=== PATIENT | male | born 1965 | race Caucasian/White ===

== ENCOUNTER 2019-10-06 08:36 | Emergency (ER) | payer SELFPAY ==
[2019-10-06 08:37] VITALS: BP 147/97; PULSE 67; RESP 15; TEMP 36.4; O2SAT 97; BMI 31.1
--- NOTE | 2019-10-06 08:51 | ED.DCSUM_ITS ---
History of Present Illness Chief Complaint: Back Informant: Patient Onset: Days, Weeks Context: Gradual Onset Timing: Intermittent Current Severity: Moderate Maximum Severity: Severe Narrative: Patient is a 53-year-old male on no daily medications with history of smoking that presents to the emergency department with right-sided lumbar back pain with radiation to his right leg. Patient states is been happening for the past month, but is gotten worse over the past few days. He states this weekend, he was doing work around his house. He was moving hay blaine and crawling under his car. He states that he got a lot of tightness and stiffness in his back that seem to radiate down his leg. He denies any trouble with bowel or bladder. He denies any fevers or chills. He said no direct trauma. He went to a chiropractor yesterday and was told that his symptoms are likely muscular. He states today, his back just felt very stiff. Prior similar symptoms: No Recent Illness/Hospitalization: No Past Medical History - Allergies and Home Meds Allergies/Adverse Reactions: Allergies No Known Allergies Allergy (Verified 10/06/19 08:39) Prior records reviewed: Yes Past Medical History: None Surgical History: no surgical history Smoking Status: Current every day smoker Review of Systems General: Denies: Chills, Fever, Sweats Eyes: Denies: Visual changes - bilaterally, Diplopia ENT: Denies: Rhinorrhea, Sore throat Cardiovascular: Denies: Chest pain, Palpitations Respiratory: Denies: Dyspnea, Cough, Dyspnea on exertion Gastrointestinal: Denies: Abdominal pain, Nausea, Vomiting, Diarrhea, Melena, Hematochezia Genitourinary: Denies: Dysuria, Hematuria, Frequency Musculoskeletal: Reports: Back pain. Denies: Extremity Pain Skin: Denies: Rash, Wounds Neurological: Denies: Headache, Weakness, Numbness Physical Exam Vital Signs/Narrative: Vital Signs Temp Pulse Resp BP Pulse Ox 10/06/19 08:37 97.6 F L 67 15 147/97 H 97 Inital Vital Signs reviewed: Yes General: Well nourished, Well developed, No Acute Distress Head: Normocephalic, Atraumatic Eyes: Perrl, EOMI ENT: Moist mucous membranes, No rhinorrhea Neck: Supple, Nontender Cardiovascular: Regular rate, Regular rhythm, No murmurs Respiratory: No distress, CTA bilaterally, Chest nontender Abdomen: Soft, Nontender, Nondistended, Normal bowel sounds Back: Normal Inspection, - - Right paralumbar spinal tenderness. Straight leg raise creates pain, but no paresthesia. 2+ symmetric lower extremity pulses. 2+ reflexes. Extremities: Nontender, No edema Skin: Normal color, No rash Neurological: Alert, Oriented x3, Cranial nerves II-XII grossly intact, Normal Strength, Normal Sensation Psychological: Normal affect, Normal Mood Diagnostic/Tx/Re-eval Clinical Impression(s) from Imaging Studies Lumbar Spine X-Ray 10/06/19 09:00 IMPRESSION: Degenerative changes of the spine, as detailed above. Nondisplaced fracture through the transverse processes of the L4 vertebrae on the right side. 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 Electronically Signed: Toney Curtis, at 9:20 EDT , Service support , - Medical Decision Making Patient has no red flag symptoms. He has normal dorsiflexion, plantar flexion, and extensor hallucis longus. He has had no abdominal pain. His pulses are normal. I did obtain plain films. There is evidence of a nondisplaced fracture the transverse process of L4 on the right, corresponding to his area of maximal pain. The patient will be treated with analgesics and antispasmodics. He will be given outpatient orthopedic follow-up. I did estate planning counselor him to not go to the chiropractor as he does have a known fracture manipulation might displace it. He is comfortable with this plan of care. Impression 1. Nondisplaced transverse process fracture L4 ED Disposition - Plan for ED Patient: Instructions: Back Fracture (Compression Fracture) Prescriptions: cycloBENZAPRine HCl [Flexeril] 10 mg PO TID PRN #20 tab PRN Reason: Muscle Spasm Prescription Printed Hydrocodone Bitart/Apap 5-325 [[place] 5MG-325MG] 1 tab PO Q6H PRN PRN 3 Days #10 tab PRN Reason: Pain Prescription Printed
[2019-10-06] MEDS: Ketorolac 30 MG/ML Syringe IM (08:59)
[2019-10-06] MEDS: Orphenadrine 60 MG/2 ML Ampul IM (08:59)
--- NOTE | 2019-10-06 09:00 | RAD_ITS ---
STUDY: X-RAY - LUMBAR SPINE REASON FOR EXAM: Male, 53 years old. Low back pain after heavy lifting TECHNIQUE: 3 view(s) of the lumbar spine were obtained. COMPARISON: None FINDINGS: Normal lumbar lordosis. There is no substantial scoliosis. 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 Incidental note is made of a spina bifida occulta of the L5 vertebrae.. There is evidence of a nondisplaced fracture of the transverse process of the L4 vertebrae on the right side. Minimal loss of height of the superior endplate of the T12 vertebrae. There is multilevel endplate spondylosis of the lumbar vertebrae. Mild degree of disc space narrowing at the L5-S1 level. Facet joint osteoarthritis. The soft tissue structures are unremarkable. RAD/Lumbar Spine 2 or 3 Views IMPRESSION: Degenerative changes of the spine, as detailed above. Nondisplaced fracture through the transverse processes of the L4 vertebrae on the right side. 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 Electronically Signed: Toney Acevedo, at 9:20 EDT , Service support ,
[2019-10-06 10:36] VITALS: BP 145/104; PULSE 77; RESP 16
== END 2019-10-06 10:37 | disposition home or self-care (01) ==
PROVIDERS: Emergency Provider Emergency Medicine
DX: S32.049A Unspecified fracture of fourth lumbar vertebra, initial encounter for closed fracture (principal); X58.XXXA Exposure to other specified factors, initial encounter; Y93.9 Activity, unspecified; Y92.9 Unspecified place or not applicable; F17.200 Nicotine dependence, unspecified, uncomplicated
CPT/HCPCS: 72100; 96372; 99282